=== PATIENT | female | born 1995 ===

== ENCOUNTER 2020-08-06 16:04 | Day surgery (SDC) | payer OTHER ==
[2020-08-06] MEDS ORDERED: hydrALAZINE 20 MG/ML VIAL SLOW IVP PRN (16:24)
[2020-08-06 17:07] LABS: Amnisure Test No Membranes Rupture (No Rupture)
[2020-08-06 17:08] LABS: Amnisure Internal Control QC ACCEPTABLE (ACCEPTABLE)
--- NOTE | 2020-08-07 05:57 | PRG ---
DATE OF SERVICE: 08/06/2020 PRIMARY SPORTS PHYSICIAN: Dr. Nay Lobo. CHIEF COMPLAINT: Leakage of fluid. HISTORY OF PRESENT ILLNESS: The patient is a 25-year-old, G1, P0 female with an intrauterine at 40 weeks and 2 days, presenting to Labor and Delivery with complaints of 2 days' history of leakage of fluid. The patient reports that she has only had to use one or two panty liners a day, but she has felt wetness into her panty liner and on occasion into her clothes. The patient denies any large volumes of fluid. She denies urinary urgency or frequency. She denies vaginal bleeding or other change in discharge. She also denies uterine contractions. The patient denies fever, cough, headache, chest pain, shortness of breath, nausea, vomiting, diarrhea, constipation, knee problems, or muscle weakness. The patient does report she has been experiencing some hip problems in the later part of this . PAST MEDICAL HISTORY: Negative. PAST SURGICAL HISTORY: 1. Tonsillectomy. 2. Foot surgery. SOCIAL HISTORY: Denies drug, alcohol, or tobacco use. MEDICATIONS: vitamins. ALLERGIES: AMOXICILLIN. OBSTETRIC LABORATORY DATA: Blood type is O positive. Antibody screen is negative. Hepatitis B surface antigen is negative. HIV is negative. She is rubella immune. One-hour Glucola is 102. GBS is negative. REVIEW OF SYSTEMS: Per HPI. PHYSICAL EXAMINATION: VITAL SIGNS: Blood pressure 123/65, heart rate of 97, respiratory rate of 18. GENERAL: She appears to be in no acute distress. She is alert, oriented, cooperative, and pleasant to interact with. HEAD: Normocephalic and atraumatic. LUNGS: Clear to auscultation bilaterally. HEART: Regular rate and rhythm. ABDOMEN: Gravid, soft, and nontender. EXTREMITIES: Nontender. She does have some symmetrical edema about 1+ and pedal edema. GENITOURINARY: Vulva is without masses, lesions, or erythema. Vagina is moist. There is no pooling on coughing or Valsalva. Cervix is visibly closed. On digital exam, cervix is closed. heart tracing shows the fetus with a baseline in the 150s with moderate long-term variability, positive 15 x 15 accelerations, no decelerations. Bedside ultrasound shows the fetus in vertex presentation, placenta is anterior, RED is 14. AmniSure test is negative. ASSESSMENT AND PLAN: The patient is a 25-year-old female with an intrauterine at 40 weeks and 2 days, presenting for complaints of leakage of fluid. The patient has no evidence of rupture of membranes at this time and no evidence of labor. Fetus has a reactive NST. The patient is being discharged home. She has a followup appointment with her primary OB on Saturday that we have encouraged that she keep. She has been given term labor precautions. Job ID: [id number]
== END 2020-08-06 17:20 | disposition home health service (06) ==
LOC: L&D/OP 16:04
PROVIDERS: ATTEND Advanced Practice Midwife
DX: O99.89 Other specified diseases and conditions complicating pregnancy, childbirth and the puerperium (principal); N89.8 Other specified noninflammatory disorders of vagina; O48.0 Post-term pregnancy; Z3A.40 40 weeks gestation of pregnancy; Z88.0 Allergy status to penicillin
CPT/HCPCS: 84112; 99283

== ENCOUNTER 2020-08-14 16:36 | Inpatient (IN) | payer OTHER ==
[~2020-08-14 16:36] MED LIST: Bupivacaine HCl 0.5%/Epinephrine 1:200,000/PF 30 ml Vial ONE; Bupivacaine/Epinephrine 0.25% 30 ML VIAL ONE; Lidocaine 2% MPF 10 ML AMP (For Epidural Use) ONE
--- NOTE | 2020-08-14 17:22 | PDOC.LDHP ---
Labor and Delivery H&P Chief complaint: loss of fluid HPI: This morning at 0410 she woke up when she heard a pop and felt something trickling out. She jumped up and had a sudden large gush of fluid onto the floor. she reports the fluid being a light brown clear color. The baby has been moving normally. She denies fever. She has been having very inconsistent contractions all day. rama closest they got were every 3-5 mins. but after a nap they tapered back off. Current gestational age (weeks): 41 (and 3 days) Grav: 1 Para: 0 Current complications: other (post dates.) Current medications: pre-bryce vitamins Previous surgical history: other (tonsillectomy, foor surgery) Social history: none - Physical Exam Vital signs reviewed and normal: yes General: NAD Lungs: nonlabored breathing Abdomen: gravid Extremeties: pitting edema (1+) FHT: category 2 (For minimal variability. (moderate variability noted for 7 mins upon arrival)) - Vaginal Exam cm dilated: 0 Effacement: 50% Station: -3 - OB Labs Blood type: O RH: positive Antibody Screen: negative HIV: negative RPR: negative HEPSAg: negative 1 hour GCT: negative GBS: negative Urine drug screen: negative Rubella: immune - Assessment L&D Assessment: term rupture in membranes post dates Suspected LGA (4500 gm at 41 weeks) Primigravida - Plan Plan: admit to L&D, cervical ripening -: OB hospitalist notified of PT due to suspected LGA.
[2020-08-14] MEDS ORDERED: Ondansetron PF 4 MG/2 ML Vial IVP PRN (17:36)
[2020-08-14] MEDS ORDERED: Butorphanol Tartrate 1 MG/ML VIAL SLOW IVP PRN (17:36)
[2020-08-14] MEDS ORDERED: Diphenoxylate HCl/Atropine Tablet PO PRN ×2 (17:36)
[2020-08-14] MEDS ORDERED: Misoprostol 200 MCG TAB PR PRN (17:36)
[2020-08-14] MEDS ORDERED: Lidocaine 1% (PF) 30 ML VIAL SC PRN (17:36)
[2020-08-14] MEDS ORDERED: NS / Oxytocin 40 units/1000ml 1,000 ML IV PRN (17:36)
[2020-08-14] MEDS ORDERED: HYDROcodone/Acetaminophen 5/325 mg Tablet PO PRN ×2 (17:36)
[2020-08-14] MEDS ORDERED: Promethazine HCl 25 MG/ML VIAL IM PRN (17:36)
[2020-08-14] MEDS ORDERED: hydrALAZINE 20 MG/ML VIAL SLOW IVP PRN (17:36)
[2020-08-14] MEDS ORDERED: Methylergonovine 0.2 MG/ML VIAL IM PRN (17:36)
[2020-08-14] MEDS ORDERED: Ibuprofen 800 MG TAB PO PRN (17:36)
[2020-08-14] MEDS ORDERED: Carboprost 250 MCG/ML AMP IM PRN (17:36)
[2020-08-14] MEDS: Dextrose 5%-Lactated Ringers 1,000 ML IV SCH (17:50)
[2020-08-14 18:10] LABS: Hemoglobin 11.8 g/dL (12.0-16.0); Mean Corpuscular HGB CONC 33.4 g/dL (32.0-36.0); Mean Corpuscular Hemoglobin 26.2 pg (27.0-31.0); Mean Corpuscular Volume 78.5 fL (78.0-98.0); Platelet Count 223 thou/uL (130-400); RBC Distribution Width 14.5 % (11.5-14.5); Red Blood Cell (RBC) Count 4.51 mill/uL (4.20-5.40); White Blood Cell (WBC) Count 7.5 thou/uL (4.8-10.8)
[2020-08-14] MEDS ORDERED: Lactated Ringer's 1,000 ML IV SCH (18:15)
[2020-08-14 18:47] LABS: Syphilis Antibody Nonreactive (Nonreactive); Syphilis Antibody Index 0.03 S/CO (<1.00 Non-Reactive)
[2020-08-14 18:48] LABS: HBSAg Index 0.18 S/CO (0-0.99); Hep B Surf Ag Non-Reactive S/CO (NonReactive)
[2020-08-14] MEDS: Misoprostol 100 MCG TAB PO SCH (19:33)
[2020-08-15] MEDS: Misoprostol 100 MCG TAB PO SCH ×2 (04:44→09:10)
[2020-08-15] MEDS ORDERED: NS w/ Oxytocin 10 units 500 ML ONE (11:24)
[2020-08-15 12:00] LABS: SARS-CoV-2 MS2 Positive; SARS-CoV-2 N Gene Negative; SARS-CoV-2 S Gene Negative; SARS-CoV-2 by NAA Not Detected (NotDetected); SARS-CoV-2 orf1ab Negative
[2020-08-15] MEDS ORDERED: Fentanyl 4 mcg/Bup 0.1% Cadd 100 ML ONE ×2 (12:09→19:11)
[2020-08-15] MEDS ORDERED: Acetaminophen 325 MG TAB PO PRN (12:43)
[2020-08-15] MEDS ORDERED: EPHEDRINE 25 MG/5 ML SYRINGE SLOW IVP PRN (12:43)
[2020-08-15] MEDS ORDERED: Lactated Ringer's 500 ML IV PRN (12:43)
[2020-08-15] MEDS ORDERED: Ondansetron PF 4 MG/2 ML Vial IVP PRN (12:43)
[2020-08-15] MEDS ORDERED: diphenhydrAMINE 50 MG/ML VIAL IVP PRN (12:43)
[2020-08-15] MEDS ORDERED: Promethazine HCl 25 MG/ML VIAL IM PRN (12:43)
[2020-08-15] MEDS ORDERED: Naloxone HCl 0.4 mg/ml Vial IVP PRN ×2 (12:43)
[2020-08-15] MEDS ORDERED: Communication Order-Pharmacy FS SCH (12:45)
[2020-08-15] MEDS ORDERED: Fentanyl 4 mcg/Bupivacaine 0.1% Cassette 100 ML EPIDURAL SCH (12:45)
--- NOTE | 2020-08-15 16:27 | PDOC.LDPN ---
Labor & Delivery Progress Note - Subjective Subjective: comfortable (with epidural) - Objective Vital signs reviewed and normal: yes General: breathing through contractions Uterine fundus: non tender Dilation: 6 Effacement: 100% Station: 0 FHT: category 1 [place] contractions every: q2-3 then 3-4 Plan: continue plan of care -: pitocin for augmentation.
[2020-08-15] MEDS ORDERED: Azithromycin 500 MG VIAL ONE (22:44)
[2020-08-15] MEDS ORDERED: CEFAZOLIN 2 GM in Premix Bag 1 BAG IVPB SCH (22:45)
[2020-08-15] MEDS ORDERED: Bicitra 30 ML UDCUP PO SCH (22:45)
[2020-08-15] MEDS ORDERED: Azithromycin 500 MG in Sodium Chloride 0.9% 250 ML 250 ML IVPB SCH (22:45)
[2020-08-15] MEDS ORDERED: Fentanyl 100 MCG/2 ML VIAL ONE (22:52)
[2020-08-15] MEDS ORDERED: EPHEDRINE 25 MG/5 ML SYRINGE ONE (22:53)
[2020-08-15] MEDS ORDERED: Oxytocin 10 UNITS/ML VIAL ONE ×2 (22:53→23:45)
[2020-08-15] MEDS ORDERED: Ketorolac Tromethamine 30 MG/ML VIAL ONE (22:53)
[2020-08-15] MEDS ORDERED: Ondansetron PF 4 MG/2 ML Vial ONE (22:53)
[2020-08-15] MEDS ORDERED: PHENYLEPHRINE-NS 100 MCG/ML 10 ML SYRINGE ONE (22:53)
[2020-08-15] MEDS ORDERED: Dexamethasone 4 mg/ml Vial ONE (22:53)
[2020-08-15] MEDS ORDERED: Misoprostol 200 MCG TAB ONE (23:15)
[2020-08-15] MEDS ORDERED: Carboprost 250 MCG/ML AMP ONE (23:15)
[2020-08-15] MEDS ORDERED: Methylergonovine 0.2 MG/ML VIAL ONE (23:16)
[2020-08-15] MEDS ORDERED: Midazolam HCl 2 mg/2 ml Vial ONE (23:43)
[2020-08-15 23:53] LABS: Actual Bicarbonate (HCO3v) 22 mEq/L (22-28); Base Excess -2.9 mEq/L (-2.0 to +3.0); pH (Cord, venous) 7.62 (7.32-7.43)
[2020-08-16] MEDS ORDERED: HYDROcodone/Acetaminophen 5/325 mg Tablet PO PRN ×3 (00:13→12:45)
[2020-08-16] MEDS ORDERED: diphenhydrAMINE 25 MG CAP PO PRN (00:13)
[2020-08-16] MEDS ORDERED: Adacel (T-DAP) 0.5 ML SYRINGE IM ONE (00:13)
[2020-08-16] MEDS ORDERED: Lanolin Ointment 7 GM TUBE TOP PRN (00:13)
[2020-08-16] MEDS ORDERED: Ondansetron PF 4 MG/2 ML Vial IVP PRN ×2 (00:13→00:39)
[2020-08-16] MEDS ORDERED: Acetaminophen 325 MG TAB PO PRN (00:13)
[2020-08-16] MEDS ORDERED: Promethazine HCl 25 MG/ML VIAL IM PRN ×2 (00:13→00:39)
[2020-08-16] MEDS ORDERED: Zolpidem Tartrate 5 MG TAB PO PRN (00:13)
[2020-08-16] MEDS ORDERED: Misoprostol 200 MCG TAB PR PRN (00:13)
[2020-08-16] MEDS ORDERED: Varicella virus, LIVE 0.5 ML VIAL SC ONE (00:13)
[2020-08-16] MEDS ORDERED: Methylergonovine 0.2 MG/ML VIAL IM PRN (00:13)
[2020-08-16] MEDS ORDERED: Measles/Mumps/Rubella 10 MCG/0.5 ML VIAL SC ONE (00:13)
[2020-08-16] MEDS ORDERED: hydrALAZINE 20 MG/ML VIAL SLOW IVP PRN (00:13)
[2020-08-16] MEDS ORDERED: NS / Oxytocin 40 units/1000ml 1,000 ML IV SCH (00:15)
[2020-08-16] MEDS ORDERED: Naloxone HCl 0.4 mg/ml Vial IVP PRN ×2 (00:39)
[2020-08-16] MEDS ORDERED: Meperidine HCl/PF 25 MG/ML VIAL SLOW IVP PRN (00:39)
[2020-08-16] MEDS ORDERED: diphenhydrAMINE 50 MG/ML VIAL IVP PRN (00:39)
[2020-08-16] MEDS ORDERED: L&D-Morphine 4 MG/ML VIAL SLOW IVP PRN (00:39)
[2020-08-16] MEDS ORDERED: Naloxone HCl 0.4 mg/ml Vial IV PRN (00:39)
[2020-08-16] MEDS ORDERED: Ondansetron HCl/PF 4 MG/2 ML Vial IVP PRN (00:39)
[2020-08-16] MEDS ORDERED: HYDROmorphone 2 MG/ML VIAL SLOW IVP PRN (00:39)
[2020-08-16] MEDS ORDERED: Promethazine HCl 25 MG SUPP PR PRN (00:39)
[2020-08-16] MEDS ORDERED: Communication Order-Pharmacy FS SCH (00:45)
--- NOTE | 2020-08-16 01:25 | OP ---
DATE OF PROCEDURE: 08/15/2020 PREOPERATIVE DIAGNOSES: 1. Forty-one week intrauterine . 2. Suspected macrosomia. 3. Arrest of descent. 4. Premature and prolonged rupture of membranes. POSTOPERATIVE DIAGNOSES: 1. Forty-one week intrauterine . 2. Suspected macrosomia. 3. Arrest of descent. 4. Premature and prolonged rupture of membranes. PROCEDURE: Primary low transverse section via Pfannenstiel. EXCELLENCE SPECIALIST: Nay Lobo CNM ANESTHESIA: Epidural. COMPLICATIONS: None. QUANTITATIVE BLOOD LOSS: 425ml FINDINGS: Normal uterus, tubes, and ovaries. Vigorous male infant in cephalic OP presentation. weight 4165g and Apgars 8/9. DESCRIPTION OF PROCEDURE: The patient was taken to the operating room, where her epidural anesthesia was found to be adequate. She was prepared and draped in a normal sterile fashion in the dorsal supine position with leftward tilt. A Pfannenstiel skin incision was made with a scalpel and carried down to the underlying layer of fascia. The fascia was incised in midline, extended laterally with Steinberg scissors. The fascia was then tented off the rectus muscles and dissected off sharply. The rectus muscles were in the midline. The peritoneum was entered bluntly. The peritoneal incision was then extended superiorly and inferiorly with good visualization of the bladder. Jakub O retractor was placed in the abdomen. A transverse incision was made with a scalpel in the lower uterine segment and extended with cephalocaudal traction. The 's head was then delivered atraumatically. The nose and mouth were suctioned with bulb suction. The cord was clamped and cut. The infant was handed off to the waiting nursery team and extension was noted on the left side of the hysterotomy, including the uterine artery. Hemostasis was obtained with an [place] stitch and the hysterotomy was closed with one Monocryl in a running locked fashion. A second layer was used to imbricate and good hemostasis was noted. The abdomen was then irrigated and the Jakub O retractor was removed from the abdomen. Hemostasis was again noted. The fascia was reapproximated with 0 PDS. The subcutaneous tissue was reapproximated with plain gut and the skin was closed with 4-0 Monocryl. The patient tolerated the procedure well. Sponge, lap, and needle counts were correct x2. The patient was taken to recovery room in stable condition. Job ID: [id number] [facility]
[2020-08-16] MEDS: Lactated Ringer's 1,000 ML IV SCH ×3 (03:18→15:55)
[2020-08-16] MEDS: Misoprostol 100 MCG TAB PO SCH ×3 (03:19→03:21)
[2020-08-16] MEDS: Dextrose 5%-Lactated Ringers 1,000 ML IV SCH (03:19)
[2020-08-16] MEDS: Ketorolac Tromethamine 30 MG/ML VIAL IVP PRN ×3 (05:49→20:01)
[2020-08-16] MEDS ORDERED: Ibuprofen 800 MG TAB PO SCH (06:00)
--- NOTE | 2020-08-16 07:06 | PDOC.OPDEL ---
OB Operative/Delivery Note Delivery Dr/Surgeon: Juliette Assist: Elias Light Pre-Delivery Diagnosis: arrest of dilation Procedure/Post Delivery Dx: primary low transverse CS Weeks gestation: 41 Anesthesia: epidural - Findings A Sex: male Weight: 9 lb 2.916 oz - 1 min: 8 - 5 min: 9 - Additional Findings/Plan Placenta delivered: spontaneous Repaired Obstetrical Laceration: none findings: low transverse hysterotomy with extension (left side of hysterotomy) Estimated blood loss: 425 Post delivery plan: routine recovery
[2020-08-16] MEDS: Prenatal Vitamin 1 TAB PO SCH (08:30)
[2020-08-16] MEDS: Docusate Calcium (SURFAK) 240 MG CAP PO SCH (08:30)
[2020-08-16] MEDS: Ferrous Sulfate 325 MG TAB PO SCH (08:31)
[2020-08-16] MEDS: Simethicone Chewable 80 MG TAB PO PRN (16:33)
[2020-08-17] MEDS: HYDROcodone/Acetaminophen 5/325 mg Tablet PO PRN ×4 (01:24→23:05)
[2020-08-17] MEDS: Ibuprofen 800 MG TAB PO SCH ×3 (05:30→21:26)
[2020-08-17 06:28] LABS: Hemoglobin 8.5 g/dL (12.0-16.0); Mean Corpuscular HGB CONC 32.5 g/dL (32.0-36.0); Mean Corpuscular Hemoglobin 25.8 pg (27.0-31.0); Mean Corpuscular Volume 79.2 fL (78.0-98.0); Mean Platelet Volume 8.9 fL (7.4-10.4); Platelet Count 202 thou/uL (130-400); RBC Distribution Width 15.1 % (11.5-14.5); White Blood Cell (WBC) Count 9.8 thou/uL (4.8-10.8)
[2020-08-17] MEDS: Ferrous Sulfate 325 MG TAB PO SCH ×3 (08:06→21:26)
[2020-08-17] MEDS: Lactated Ringer's 1,000 ML IV SCH ×3 (08:06→17:28)
[2020-08-17] MEDS: Docusate Calcium (SURFAK) 240 MG CAP PO SCH ×3 (08:06→21:26)
[2020-08-17] MEDS: Prenatal Vitamin 1 TAB PO SCH (09:31)
--- NOTE | 2020-08-17 13:13 | PDOC.PP ---
Post Progress Note Post Day #: 1 Subjective: Pt is ok. She has vomited twice after eating. Pain is ok PO intake tolerated: yes Flatus: no Ambulation: yes Vital Signs (12 hours) Temp Pulse Resp BP Pulse Ox 08/17/20 11:35 97.9 F 70 20 113/65 99 08/17/20 08:19 98.2 F 77 20 107/65 97 08/17/20 05:28 97.9 F 73 16 116/66 08/17/20 01:25 98.1 F 94 16 106/56 L Weight Weight 175 lb - Physical Examination General: NAD Respiratory: clear to auscultation bilaterally, non-labored breathing Abdominal: + bowel sounds, lochia Deviation from normal: Distention, tympanic percussion Extremities: negative homans (B) Skin: CS incision dry & intact Neurological: no gross focal deficits Psychiatric: A&Ox3, normal affect Result Diagrams: 08/17/20 05:53 Additional Labs: Post Labs Hep Bs Antigen Non-Reactive S/CO (NonReactive) 08/14/20 17:52 Blood Type O POSITIVE 08/14/20 18:30 (1) 41 weeks gestation of Code(s): Z3A.41 - 41 WEEKS GESTATION OF Status: Acute - Assessment/Plan A: G1PO now P1 s/p LTCS P: ambulate 3 times a day pain control
--- NOTE | 2020-08-17 13:20 | PDOC.PP ---
Post Progress Note Post Day #: 2 Subjective: Pt is hurting but doing better with eating and . She just took a norco. she has started to pass gas and is not longer having vomiting. PO intake tolerated: yes Flatus: yes Ambulation: yes Vital Signs (12 hours) Temp Pulse Resp BP Pulse Ox 08/17/20 11:35 97.9 F 70 20 113/65 99 08/17/20 08:19 98.2 F 77 20 107/65 97 08/17/20 05:28 97.9 F 73 16 116/66 08/17/20 01:25 98.1 F 94 16 106/56 L Weight Weight 175 lb - Physical Examination General: NAD Cardiovascular: no m/r/g, RRR Respiratory: clear to auscultation bilaterally, non-labored breathing Abdominal: + bowel sounds, lochia, appropriately TTP Deviation from normal: Distention and tympany Extremities: negative homans (B) Skin: CS incision dry & intact, no rash Neurological: no gross focal deficits Psychiatric: A&Ox3, normal affect Result Diagrams: 08/17/20 05:53 Additional Labs: Post Labs Hep Bs Antigen Non-Reactive S/CO (NonReactive) 08/14/20 17:52 Blood Type O POSITIVE 08/14/20 18:30 (1) 41 weeks gestation of Code(s): Z3A.41 - 41 WEEKS GESTATION OF Status: Acute - Assessment/Plan A: s/p LTCS for failure of decent. P: routine PP care Recommended continued ambulation, gas-ex, pain control Evaluate for discharge home tomorrow.
[2020-08-17] MEDS: Simethicone Chewable 80 MG TAB PO PRN ×2 (14:24→21:26)
[2020-08-18] MEDS: Lactated Ringer's 1,000 ML IV SCH ×2 (01:49→09:07)
[2020-08-18] MEDS: Ibuprofen 800 MG TAB PO SCH ×2 (05:35→14:12)
[2020-08-18] MEDS: Simethicone Chewable 80 MG TAB PO PRN (05:39)
[2020-08-18 08:28] VITALS: BP 133/84; TEMP 98
[2020-08-18] MEDS: Ferrous Sulfate 325 MG TAB PO SCH (09:18)
[2020-08-18] MEDS: Docusate Calcium (SURFAK) 240 MG CAP PO SCH (09:18)
[2020-08-18] MEDS: Prenatal Vitamin 1 TAB PO SCH (09:18)
[2020-08-18] MEDS: HYDROcodone/Acetaminophen 5/325 mg Tablet PO PRN (11:29)
--- NOTE | 2020-08-19 11:55 | PQF ---
CLINICAL DOCUMENTATION CLARIFICATION FORM: Dear : Hi Cheng MD Date / Time: 08/19/2020 Please exercise your independent, professional judgment in responding to the clarification form. Clinical indicators are provided on the bottom of this form for your review Please check appropriate box(es): [ ] Acute blood loss anemia [ ] Post-op anemia related to acute blood loss [ ] Chronic Anemia: [ ] Blood loss [ ] Hemolytic [ ] Simple [ ] Due to Vitamin B12 Deficiency [ ] Other [ ] Anemia of Chronic Disease (please specify) [ ] Other diagnosis (Please specify if any) [ ] Unable to determine In addition, please specify: Present on Admission (POA): [ ] Yes [ ] No [ ] Unable to determine Physician Signature: Date/Time: For continuity of documentation, please document condition throughout progress notes and discharge summary. Thank You. To be completed by CDI/Coding staff for physician review: Present Clinical Indicators - Signs / Symptoms / Labs Results and Location in Medical Record [ ] Acute bleed /anemia [x ] Hypotension BP:119/59, 106/56 vitals on 08/16, 08/17 [ x ] Low hemoglobin and/or hematocrit Hgb-8.5, Hct-26.1 Laboratory on 08/17 [ x ] Estimated blood loss ESBL 425 ml OP note on 08/15 [ ] Melena/Hematochezia [ ] Tachycardia Present Risk Factors Results and Location in Medical Record [ x ] Surgery Primary LTCS - OP note on 08/15 [ ] Fracture of long bones [ ] Neoplasm [ ] Malnutrition Present Treatments Results and Location in Medical Record [ ] Transfusion of blood products [x ] Discharge medications: Ferrous sulfate 325mg PO Medication on 08/18 CDS/Materials Clerk Signature: AAS Phone #: Date/Time: 08/19/2020 This is a permanent part of the Medical Record [facility]
== END 2020-08-18 16:04 | disposition home or self-care (01) | DRG 788 ==
LOC: L&D 16:36 → 3SW 08-16 03:01
PROVIDERS: ADMIT Obstetrics & Gynecology; ATTEND Obstetrics & Gynecology
PROC: 10D00Z1 Extraction of Products of Conception, Low, Open Approach (ICD-10-PCS; principal; 2020-08-15)
DX: O48.0 Post-term pregnancy (principal); O62.1 Secondary uterine inertia; O66.2 Obstructed labor due to unusually large fetus; Z3A.41 41 weeks gestation of pregnancy; Z37.0 Single live birth; Z90.49 Acquired absence of other specified parts of digestive tract
CPT/HCPCS: 36415; 51702; 82805; 85027; 86780; 86850; 86900; 86901; 87340; 87635; J0456; J0595; J0690; J1100; J1885; J2001; J2210; J2250; J2270; J2405; J2590; J3010; J3490; J7050; U0003